=== PATIENT | male | born 1960 | race African-American/Black ===

== ENCOUNTER 2016-09-22 23:08 | Emergency (ER) | payer MEDICARE, OTHER ==
[~2016-09-22] VITALS: Ht 180.3 cm; Wt 124.7 kg
[2016-09-22 23:20] VITALS: BP 150/80
[2016-09-23] MEDS ORDERED: Fluorescein Strips LEFT EYE ONE (00:15)
[2016-09-23] MEDS ORDERED: Tetracaine 0.5% Opth Soln LEFT EYE ONE (00:15)
[2016-09-23] MEDS ORDERED: Sulfacetamide 10% Opth Btl LEFT EYE STA (00:31)
--- NOTE | 2016-09-23 00:33 | Emergency Room Report ---
History of Present Illness General Chief Complaint: Eye Problems Source: Patient Present Illness HPI Left eye pain and swelling this started this morning. When he got up unable to open his eye. There's been no change in his vision. Denies trauma. Swelling of upper lid on lateral side on L. Denies drainage. Pain is Never before. Denies diabetes. Allergies: Coded Allergies: No Known Allergies (Unverified , 09/22/16) Patient History Past Medical History: see triage record Social History: Reports: smoking Nursing Documentation-PMH Hx Cardiac Problems: No Hx Hypertension: No Hx Pacemaker: No Hx Asthma: No Hx COPD: No Hx Diabetes: No Hx Cancer: No Hx Gastrointestinal Problems: No Hx Dialysis: No History Of Psychiatric Problem: Yes Hx Neurological Problems: No Hx Cerebrovascular Accident: No Hx Seizures: No Physical Exam Vital Signs Date Time Temp Pulse Resp B/P Pulse Ox O2 Delivery O2 Flow Rate FiO2 09/22/16 23:15 97.7 66 18 150/80 98 Room Air General Appearance: no apparent distress Eyes: left eye EOMI, left eye lid inflammation, left eye other - stye with some pus draining lateral upper lid, no FB, bilateral eye PERRL ENT: moist mucus membranes Respiratory: lungs clear Cardiovascular #2: 2+ radial (L) Gastrointestinal: normal inspection, overweight Musculoskeletal: normal inspection Neurologic: normal inspection, grossly normal Psychiatric: mood/affect normal Skin: normal inspection, no rash Medical Decision Making Diagnostic Impression: Primary Impression: Sty Qualified Codes: H00.014 - Hordeolum externum left upper eyelid ER Course Patient with swelling and min tenderness L eye. DDx: uviitis, lac, stye. Exam c/w stye. Antibiotics indicated. Patient told will need to follow up with an wage and salary specialist. Patient stable for outpatient observation and treatment. Last Vital Signs Date Time Temp Pulse Resp B/P Pulse Ox O2 Delivery O2 Flow Rate FiO2 09/23/16 01:40 97.7 71 14 145/80 98 Room Air Status: improved Disposition: HOME, SELF-CARE Condition: Improved Scripts Ibuprofen* (MOTRIN*) 600 Mg Tablet 600 MG ORAL Q6H Y for For Pain, #12 TAB Prov: Kaleb Deutsch M.D. 09/23/16 Sulfacetamide Sodium (BLEPH-10) 5 Ml Drops 2 DROP OP Q6HR for 7 Days, #10 ML Prov: Kaleb Deutsch M.D. 09/23/16 Kaleb Deutsch M.D. Sep 23, 2016 00:33
[2016-09-23] MEDS ORDERED: BLEPH-105 ML OP (00:54)
[2016-09-23] MEDS ORDERED: IBUPROFEN600 MG ORAL (00:54)
[2016-09-23 01:20] VITALS: BP 145/80
[2016-09-23 01:40] VITALS: BP 145/80
== END 2016-09-23 01:40 | disposition home or self-care (01) ==
LOC: EMR 23:59
DX: H00.014 Hordeolum externum left upper eyelid (principal); F17.200 Nicotine dependence, unspecified, uncomplicated
CPT/HCPCS: 99284